=== PATIENT | male | born 1975 | race Caucasian/White ===

== ENCOUNTER 2017-01-04 15:28 | Emergency (ER) | payer SELFPAY ==
[2017-01-04 17:16] LABS: Basophils % (Auto) 0.5 % (0.0-1.8); Eosinophils % (Auto) 4.6 % (0.0-4.3); Hematocrit 45.9 % (35.5-45.6); Hemoglobin 15.3 gm/dl (11.8-15.2); Mean Corpuscular HGB Conc 33 % (32-34); Mean Corpuscular Hemoglobin 30 pg (28-32); Mean Corpuscular Volume 90 fl (84-94); Platelet Count 307 K/mm3 (140-440); Red Blood Count 5.11 M/mm3 (3.65-5.03); Red Cell Distribution Width 13.8 % (13.2-15.2); White Blood Count 15.4 K/mm3 (4.5-11.0)
[2017-01-04 17:38] LABS: Anion Gap 15 mmol/L; Blood Urea Nitrogen 10 mg/dL (9-20); Calcium 8.8 mg/dL (8.4-10.2); Carbon Dioxide 28 mmol/L (22-30); Chloride 97.5 mmol/L (98-107); Glucose 111 mg/dL (75-100); Potassium 3.7 mmol/L (3.6-5.0); Sodium 137 mmol/L (137-145)
--- NOTE | 2017-01-04 18:00 | XRay Report ---
FINAL REPORT EXAM: XR HAND 3 RT HISTORY: hand injury TECHNIQUE: 5 views right hand PRIORS: None. FINDINGS: No fracture is identified. No dislocation seen. Joint spaces are within normal limits. No erosive bony change identified. Carpal bones maintain normal alignment. Distal radius and ulna are intact. No radiopaque foreign bodies seen. There is soft tissue swelling of the 3rd digit IMPRESSION: Soft tissue swelling 3rd digit No fracture or radiopaque foreign body identified
--- NOTE | 2017-01-05 03:56 | Emergency Department Report ---
HPI - General Chief Complaint: Extremity Injury, Upper Time Seen by Provider: 01/05/17 03:50 - HPI HPI: Patient is a 41-year-old male presents to ED complaining of right hand that started on Friday. Patient states he was painting and using a machine. Patient states it was a hole in the wall and as he was working on the pain from the wall got free and cut his finger. Patient states he was putting some Neosporin on his hand. Patient states his finger is gotten red and swollen the past 3 days. Patient states is only taking Tylenol for the pain but pain has been progressively worse. He denies fevers/chills/nausea/vomiting/abdominal pain such as chest pain/ shortness of breath ED Past Medical Hx - Past Medical History Previous Medical History?: No - Surgical History Past Surgical History?: No - Social History Smoking Status: Never Smoker Substance Use Type: Alcohol - Medications Home Medications: Home Medications Medication Instructions Recorded Confirmed Last Taken Type Acetaminophen/Codeine [Tylenol 1 tab PO Q6H PRN #12 tab 01/05/17 Unknown Rx /Codeine # 3 tab] Clindamycin [Clindamycin CAP] 300 mg PO Q8H #21 cap 01/05/17 Unknown Rx Ibuprofen [Motrin] 800 mg PO Q8HR PRN #30 tablet 01/05/17 Unknown Rx ED Review of Systems ROS: Stated complaint: RT HAND THIRD FINGER LAC Other details as noted in HPI Constitutional: denies: chills, fever Eyes: denies: eye pain, eye discharge, vision change ENT: denies: ear pain, throat pain Respiratory: denies: cough, shortness of breath, wheezing Cardiovascular: denies: chest pain, palpitations Endocrine: no symptoms reported Gastrointestinal: denies: abdominal pain, nausea, vomiting, diarrhea, constipation Genitourinary: denies: urgency, dysuria Musculoskeletal: denies: back pain, joint swelling, arthralgia Skin: denies: rash, lesions Neurological: denies: headache, weakness, paresthesias Psychiatric: denies: anxiety, depression Hematological/Lymphatic: denies: easy bleeding, easy bruising Physical Exam - Physical Exam Vital Signs: Vital Signs 01/04/17 01/04/17 01/05/17 16:51 23:59 01:05 Temperature 99.6 F Pulse Rate 101 H 101 H 67 Respiratory 16 18 21 Rate Blood Pressure 176/101 155/100 Blood Pressure [Left] O2 Sat by Pulse 100 100 99 Oximetry 01/05/17 01/05/17 01/05/17 01:10 01:20 01:30 Temperature Pulse Rate 61 66 58 L Respiratory 13 14 23 Rate Blood Pressure 177/96 154/93 158/94 Blood Pressure [Left] O2 Sat by Pulse 100 98 100 Oximetry 01/05/17 01/05/17 01/05/17 01:31 01:32 01:40 Temperature 98.8 F Pulse Rate 69 62 Respiratory 15 15 11 L Rate Blood Pressure 158/94 Blood Pressure 177/96 [Left] O2 Sat by Pulse 99 100 Oximetry 01/05/17 01/05/17 01/05/17 01:50 02:00 02:11 Temperature Pulse Rate 65 60 63 Respiratory 17 25 H 19 Rate Blood Pressure 156/100 156/100 Blood Pressure [Left] O2 Sat by Pulse 100 99 100 Oximetry 01/05/17 01/05/17 01/05/17 02:21 02:30 02:41 Temperature Pulse Rate 69 62 60 Respiratory 12 9 L 10 L Rate Blood Pressure 156/94 155/94 155/94 Blood Pressure [Left] O2 Sat by Pulse 99 97 99 Oximetry Physical Exam: GENERAL: Alert and oriented x3, no apparent distress, Normal Gait, atraumatic. HEAD: Head is normocephalic and a-traumatic. ccommodation. LUNGS: Symetrical with respiration, No wheezing, no rales or crackles, CTAB. HEART: S1, S2 present, regular rate and rhythm without murmur, no rubs, no gallops. Non tender to palpation ABDOMEN: No organomegaly was noted,Positive bowel sounds, soft, and non- distended. . Nontender to palpation on all Quadrants, NO CVA tenderness. EXTREMITIES/MUSCULOSKELETAL: No cyanosis, clubbing, rash, lesions or edema. Full ROM bilaterally. UE/LE Pulses 2+ bilaterally. LE and UE 5+ strength bilaterally, NEUROLOGIC: The patient is cooperative with no focal neurologic deficits. Cranial nerves II through XII are grossly intact. Normal speech. SKIN: Warm and dry, right middle finger erythematous and swollen. blunt healing scab. Tenderness to palpation, not typically in No lesions, No ulceration or induration present. ED Course Vital Signs 01/04/17 01/04/17 01/05/17 16:51 23:59 01:05 Temperature 99.6 F Pulse Rate 101 H 101 H 67 Respiratory 16 18 21 Rate Blood Pressure 176/101 155/100 Blood Pressure [Left] O2 Sat by Pulse 100 100 99 Oximetry 01/05/17 01/05/17 01/05/17 01:10 01:20 01:30 Temperature Pulse Rate 61 66 58 L Respiratory 13 14 23 Rate Blood Pressure 177/96 154/93 158/94 Blood Pressure [Left] O2 Sat by Pulse 100 98 100 Oximetry 01/05/17 01/05/17 01/05/17 01:31 01:32 01:40 Temperature 98.8 F Pulse Rate 69 62 Respiratory 15 15 11 L Rate Blood Pressure 158/94 Blood Pressure 177/96 [Left] O2 Sat by Pulse 99 100 Oximetry 01/05/17 01/05/17 01/05/17 01:50 02:00 02:11 Temperature Pulse Rate 65 60 63 Respiratory 17 25 H 19 Rate Blood Pressure 156/100 156/100 Blood Pressure [Left] O2 Sat by Pulse 100 99 100 Oximetry 01/05/17 01/05/17 01/05/17 02:21 02:30 02:41 Temperature Pulse Rate 69 62 60 Respiratory 12 9 L 10 L Rate Blood Pressure 156/94 155/94 155/94 Blood Pressure [Left] O2 Sat by Pulse 99 97 99 Oximetry ED Medical Decision Making - Lab Data Result diagrams: 01/04/17 17:04 01/04/17 17:04 - Medical Decision Making 41-year-old male presents with cellulitis of right middle finger ED course: CBC, CMP, blood cultures ordered. Hand x-ray ordered Hand x-ray shows no acute fracture and dislocations: Normal x-ray CBC shows mild leukocytosis. Blood cultures pending. No fever Patient received 1 g of Rocephin and 4 mg of morphine for pain. Discussed warm compression 3 times a day. Discuss follow-up wound check in 3 days. Signs are normal patient is in no acute distress. Critical care attestation.: If time is entered above; I have spent that time in minutes in the direct care of this critically ill patient, excluding procedure time. ED Disposition Clinical Impression: Cellulitis of finger of right hand Finger wound, simple, open Qualifiers: Encounter type: initial encounter Qualified Code(s): S61.209 - Unspecified open wound of unspecified finger without damage to nail, initial encounter Disposition: DC-01 TO HOME OR SELFCARE Is pt being admited?: No Does the pt Need Aspirin: No Condition: Stable Instructions: Cellulitis (ED), Acute Wound Care (ED) Additional Instructions: Return to ED 3 days for wound check Particular medication as prescribed. Prescriptions: Acetaminophen/Codeine [Tylenol /Codeine # 3 tab] 1 tab PO Q6H PRN #12 tab PRN Reason: Pain Clindamycin [Clindamycin CAP] 300 mg PO Q8H #21 cap Ibuprofen [Motrin] 800 mg PO Q8HR PRN #30 tablet PRN Reason: Pain Referrals: PRIMARY CARE, [Primary Care Provider] - 3-5 Days [facility] [Outside] - 3-5 Days [facility] [Outside] - 3-5 Days [facility] [Outside] - 3-5 Days [facility] [Outside] - 3-5 Days Forms: Accompanied Note, Work/School Release Form(ED)
[2017-01-05] MEDS ORDERED: XYLOCAINE 1% MPF 5 mL INFILTRATI ONE (04:05)
[2017-01-05] MEDS ORDERED: MORPHINE IV ONE (04:05)
[2017-01-05] MEDS ORDERED: ROCEPHIN 1,000 MG in NACL 0.9% 50 ML IV ONE ×2 (04:09→05:00)
[2017-01-05] MEDS ORDERED: ROCEPHIN/NS 1 GM/50 ML 1 GM/50 ML BAG IV ONE (04:13)
[2017-01-05 05:10] VITALS: BP 138/93
== END 2017-01-05 06:25 | disposition home or self-care (01) ==
LOC: ED 15:28
DX: S61.212A Laceration without foreign body of right middle finger without damage to nail, initial encounter (principal); L03.011 Cellulitis of right finger; W31.89XA Contact with other specified machinery, initial encounter; Y93.89 Activity, other specified; Y99.8 Other external cause status; Y92.89 Other specified places as the place of occurrence of the external cause
CPT/HCPCS: 36415; 73130; 80048; 82140; 82805; 85025; 87040; 96365; 96375; 99284; J0696; J2270